=== PATIENT | female | born 1995 | race Caucasian/White ===

== ENCOUNTER 2021-01-29 06:45 | Emergency (ER) | payer OTHER ==
[~2021-01-29] VITALS: Ht 170.2 cm; Wt 74.8 kg
[2021-01-29 06:55] VITALS: BP 145/93
--- NOTE | 2021-01-29 07:01 | NUR ---
PT TAKEN TO BED 4
--- NOTE | 2021-01-29 07:05 | NUR ---
TO BED 4 FROM TRIAGE WITH C/O RIGHT FOOT PAIN AFTER FALLING IN HOLE IN LAWN AND TWISTING FOOT. RIGHT FOOT SLIGHTLY SWOLLEN WITH ECHYMOSIS. PT IS ABLE TO BEAR WEIGHT.
[2021-01-29] MEDS ORDERED: IBUPROFEN 600 MG TAB PO ONE (07:25)
--- NOTE | 2021-01-29 07:26 | NUR ---
REPORT TO ENA BOSTON
--- NOTE | 2021-01-29 07:36 | NUR ---
xray at bedside
[2021-01-29] MEDS ORDERED: IBUP-2213 PO (08:11)
[2021-01-29 08:42] VITALS: BP 122/81
== END 2021-01-29 08:37 | disposition home or self-care (01) ==
LOC: MED 06:45
DX: S90.31XA Contusion of right foot, initial encounter (principal); M25.571 Pain in right ankle and joints of right foot; Z79.899 Other long term (current) drug therapy; W19.XXXA Unspecified fall, initial encounter; Y93.89 Activity, other specified; Y92.096 Garden or yard of other non-institutional residence as the place of occurrence of the external cause; Y99.8 Other external cause status
CPT/HCPCS: 73610; 73630; 99284